=== PATIENT | male | born 1980 | race Caucasian/White ===

== ENCOUNTER 2022-03-12 11:00 | Inpatient (IN) | payer MEDICAID ==
[~2022-03-12] VITALS: Ht 180.3 cm; Wt 108.9 kg
--- NOTE | 2022-03-12 11:15 | NUR ---
Pt brought by self, A&Ox4, pt presents to ER with redness and pain on L upper leg, afebrile, VSS ,respirations are even and unlabored, will cont to monitor
[2022-03-12 11:49] VITALS: BP_SYST 154
--- NOTE | 2022-03-12 12:00 | NUR ---
Dr Gould evaluating patient at bedside
[2022-03-12] MEDS ORDERED: VANCOMYCIN HCL 1,000 MG in NS 250 ML IV ONE (12:45)
--- NOTE | 2022-03-12 13:05 | NUR ---
Dr Gould at bedside to insert central line, procedure well tolerated, will cont to monitor.
[2022-03-12] MEDS ORDERED: LIDOCAINE 1%, 20 ML MDV 20 ML ONE (13:12)
[2022-03-12] MEDS ORDERED: VANCOMYCIN HCL 1000 MG/VIAL IV ONE (13:36)
[2022-03-12] MEDS ORDERED: FUROSEMIDE 40 MG/4 ML VIAL IVP ONE (13:45)
[2022-03-12 13:48] LABS: BASOPHILS # (AUTO) 0.1 K/uL (0.0-0.2); BASOPHILS % (AUTO) 0.7 % (0.0-2.0); EOSINOPHILS # (AUTO) 0.1 K/uL (0.0-0.4); EOSINOPHILS % (AUTO) 1.3 % (0.0-4.0); HEMATOCRIT 28.8 % (36-54); HEMOGLOBIN 9.5 g/dL (14.0-18.0); LYMPHOCYTES # (AUTO) 1.6 K/uL (1.0-5.5); LYMPHOCYTES % (AUTO) 18.5 % (20.5-51.5); MEAN CORPUSCULAR HEMOGLOBIN 24 pg (27-31); MEAN CORPUSCULAR HGB CONC 33 % (32-36); MEAN CORPUSCULAR VOLUME 73 fL (79.0-98.0); MONOCYTES % (AUTO) 11.1 % (1.7-9.3); NEUTROPHILS % (AUTO) 68.4 % (40.0-70.0); PLATELET COUNT (AUTO) 321 K/uL (130-430); RED BLOOD CELL COUNT(AUTO) 3.93 MIL/uL (4.2-6.2); RED CELL DISTRIBUTION WIDTH 15.8 % (9.0-15.0); WHITE BLOOD COUNT (AUTO) 8.8 K/uL (4.8-10.8)
[2022-03-12 14:08] LABS: CHLORIDE 99 mmol/L (98-107); POTASSIUM 3.4 mmol/L (3.5-5.1); SODIUM SERUM 134 mmol/L (136-145)
[2022-03-12 14:10] LABS: ALANINE AMINOTRANSFERASE 11 U/L (12-78); ALBUMIN 1.9 g/dL (3.4-4.8); ASPARTATE AMINOTRANSFERASE 18 U/L (10-37); CALCIUM 8.4 mg/dL (8.4-11.0); CREATININE 0.78 mg/dL (0.55-1.30); GLUCOSE 131 mg/dL (70-99); UREA NITROGEN, BLOOD 11 mg/dL (8-21)
[2022-03-12 14:13] LABS: GFR AFRICAN AMERICAN 142 mL/min (>90)
--- NOTE | 2022-03-12 14:24 | NUR ---
D-DIMER [id number] CALLED IN FROM [facility]. LOO.
[2022-03-12 14:26] LABS: ANION GAP 4 (5-15); TOTAL BILIRUBIN 0.2 mg/dL (0.0-1.0)
[2022-03-12] MEDS ORDERED: MUPIROCIN 2% TOPICAL OINTMENT 22 GM NS PRN (14:30)
[2022-03-12] MEDS ORDERED: MAGNESIUM SULFATE 50 ML IV PRN (14:30)
[2022-03-12] MEDS ORDERED: ZOLPIDEM TARTRATE 5 MG TABLET PO PRN (14:30)
[2022-03-12] MEDS ORDERED: ACETAMINOPHEN 325 MG TABLET PO PRN (14:30)
[2022-03-12] MEDS ORDERED: DOCUSATE SODIUM 100 MG CAPSULE PO PRN (14:30)
[2022-03-12] MEDS ORDERED: MORPHINE 2 MG/ML INJ. SYRINGE IVP PRN (14:30)
[2022-03-12] MEDS ORDERED: LORazepam 2 MG/ML VIAL IVP PRN (14:30)
[2022-03-12] MEDS ORDERED: POTASSIUM CHLORIDE 20 MEQ TAB.PRT.SR PO PRN (14:30)
[2022-03-12 15:09] LABS: TOTAL IRON BIND. CAPACITY 180 ug/dL (250-450)
--- NOTE | 2022-03-12 16:00 | NUR ---
Patient will be admitted to care of Dr Conner Admitted to Tele unit. Will go to room 109. Belongings list completed. Complete and up to date summary report printed. SBAR report to be given at bedside with opportunity for questions.
--- NOTE | 2022-03-12 16:30 | NUR ---
ADMISSION: The patient, PARIS MARY, 41 y/o, M admitted by TAMAR GORDON DO, was given written information regarding hospital policies, unit procedures and contact persons. Obtained VS.
--- NOTE | 2022-03-12 16:35 | NUR ---
CONSULT: CARDIO [facility] DR. ADDISON [phone] S/W: ABBIE
--- NOTE | 2022-03-12 16:38 | NUR ---
CONSULT ALSO CALLED TO DR ADDISON'S OFFICE, RE: CHF. SPOKE TO MARGARITA.
[2022-03-12 16:48] VITALS: BP_SYST 118
--- NOTE | 2022-03-12 17:00 | NUR ---
pain patient complaining of pain to left leg. requesting medication
[2022-03-12] MEDS: ONDANSETRON HCL 4 MG/2 ML VIAL IVP PRN (17:09)
[2022-03-12] MEDS: MORPHINE 2 MG/ML INJ. SYRINGE IVP PRN ×2 (17:10→21:10)
[2022-03-12] MEDS: NACL 0.9% 1,000 ML IV SCH (17:18)
--- NOTE | 2022-03-12 19:20 | NUR ---
closing note Provided SBAR to night RN. Patient in bed, respirations even, non labored, bed in low and locked position, call light within reach, bed alarm on. IVF's running as ordered. Endorsed care to night RN
[2022-03-12 20:17] VITALS: BP_SYST 120
[2022-03-13 01:33] VITALS: BP_SYST 128
[2022-03-13] MEDS: NACL 0.9% 1,000 ML IV SCH (06:22)
[2022-03-13] MEDS: MORPHINE 2 MG/ML INJ. SYRINGE IVP PRN ×4 (06:23→22:44)
[2022-03-13 06:24] VITALS: BP_SYST 128
[2022-03-13 08:01] VITALS: BP_SYST 125
[2022-03-13] MEDS ORDERED: FUROSEMIDE 40 MG/4 ML VIAL IVP SCH (09:00)
[2022-03-13] MEDS ORDERED: ACETAMINOPHEN 325 MG TABLET PO PRN (09:45)
[2022-03-13] MEDS: FERROUS SULFATE 325 MG TABLET.DR PO SCH ×2 (12:24→21:45)
[2022-03-13 12:49] LABS: BARBITURATE, URINE NEGATIVE (NEG <=200); BENZODIAZEPINE, URINE NEGATIVE (NEG <=150); CANNABINOID, URINE NEGATIVE (NEG <=50); COCAINE, URINE NEGATIVE (NEG <=150); METHAMPHETAMINES SCREEN,URINE POSITIVE (NEG <=500); OPIATE, URINE POSITIVE (NEG <=100); PHENCYCLIDINE SCREEN,URINE NEGATIVE (NEG <=25); UR TRICYCLIC ANTIDEPRESSANTS NEGATIVE (NEG <=300); URINE AMPHETAMINE POSITIVE (NEG <=500); URINE METHADONE NEGATIVE (NEG <=200); URINE OXYCODONE SCREEN NEGATIVE (NEG <=100); URINE PROPOXYPHENE SCREEN NEGATIVE (NEG <=300)
[2022-03-13] MEDS: VANCOMYCIN HCL 1,250 MG in NS 250 ML IV SCH ×2 (13:41→21:48)
--- NOTE | 2022-03-13 15:09 | NUR ---
CHIEF OPHTHALMIC TECHNICIAN ACSFrancine Ta responded to a generated Social Service referral to address homelessness and substance abuse. ACSFrancine Ta met with patient at bedside. ACSW completed introductions, reason for referral and provided business card. Housing- Patient confirmed he has been homeless for about a year since being released from long term after a 3 year term. Patient did not want to discuss further. Substance Abuse- Patient did not want to discuss this further. Due to patient currently being on parole, ACSW inquired into his need for proof of admission to which he stated "I don't fuck with parole". ACSW acknowledged his statement and informed him should he need a letter social work can be contacted. Patient stated he no longer wanted to engage with ACSW and declined all resources at this time. ACSW will continue to be available as needed
--- NOTE | 2022-03-13 15:29 | NUR ---
PATIENT'S MOM BRUCE ROJAS SEEN LEAVING FROM PT 'S ROOM. TOLD HER THAT PT REFUSED HOMELESS ASSISTANCE. ASKED HER IF SHE WILL TAKE PT HOME WHEN DC . SHE SAID SHE CAN PICK HIM UP BUT HE WILL NOT LIVE OR GO WITH HER. SHE WILL JUST DROP HIM WHEREVER HE WANTS TO GO.
[2022-03-13 16:40] VITALS: BP_SYST 138
[2022-03-13 19:00] VITALS: BP_SYST 137
[2022-03-13 20:09] VITALS: BP_SYST 137
--- NOTE | 2022-03-13 22:46 | NUR ---
Morphine 1mg given witnessed by Jere BAKER. Patient complaining of lower leg pain 04/28.
[2022-03-14 04:00] VITALS: BP_SYST 133
[2022-03-14] MEDS: VANCOMYCIN HCL 1,250 MG in NS 250 ML IV SCH (05:28)
[2022-03-14] MEDS ORDERED: CLIN-142 PO (08:04)
[2022-03-14] MEDS ORDERED: Ferrous Sulfate PO (08:04)
[2022-03-14] MEDS: ONDANSETRON HCL 4 MG/2 ML VIAL IVP PRN (09:00)
[2022-03-14] MEDS: FERROUS SULFATE 325 MG TABLET.DR PO SCH (09:00)
[2022-03-14] MEDS: MORPHINE 2 MG/ML INJ. SYRINGE IVP PRN (09:03)
[2022-03-14 09:37] VITALS: BP_SYST 93
[2022-03-14 10:08] LABS: CALCIUM 8.8 mg/dL (8.4-11.0); CREATININE 0.69 mg/dL (0.55-1.30); POTASSIUM 3.8 mmol/L (3.5-5.1)
[2022-03-14 10:20] LABS: BASOPHILS # (AUTO) 0.1 K/uL (0.0-0.2); BASOPHILS % (AUTO) 0.9 % (0.0-2.0); EOSINOPHILS # (AUTO) 0.1 K/uL (0.0-0.4); EOSINOPHILS % (AUTO) 0.9 % (0.0-4.0); HEMATOCRIT 33.6 % (36-54); HEMOGLOBIN 11.4 g/dL (14.0-18.0); LYMPHOCYTES # (AUTO) 1.3 K/uL (1.0-5.5); LYMPHOCYTES % (AUTO) 14.9 % (20.5-51.5); MEAN CORPUSCULAR HEMOGLOBIN 26 pg (27-31); MEAN CORPUSCULAR HGB CONC 34 % (32-36); MONOCYTES # (AUTO) 0.6 K/uL (0.0-1.0); MONOCYTES % (AUTO) 6.4 % (1.7-9.3); NEUTROPHILS # (AUTO) 6.6 K/uL (1.8-7.7); NEUTROPHILS % (AUTO) 76.9 % (40.0-70.0); PLATELET COUNT (AUTO) 418 K/uL (130-430); RED CELL DISTRIBUTION WIDTH 15.8 % (9.0-15.0); WHITE BLOOD COUNT (AUTO) 8.6 K/uL (4.8-10.8)
[2022-03-14 10:29] LABS: MEAN CORPUSCULAR VOLUME 76 fL (79.0-98.0)
== END 2022-03-14 11:00 | disposition home or self-care (01) | DRG 383 ==
LOC: SED 11:00 → STU 14:34 → SMU 03-13 12:36
PROVIDERS: ADMIT General Practice; ATTEND General Practice
PROC: 02HV33Z Insertion of Infusion Device into Superior Vena Cava, Percutaneous Approach (ICD-10-PCS; principal; 2022-03-12)
DX: L03.116 Cellulitis of left lower limb (principal); E43 Unspecified severe protein-calorie malnutrition; I42.9 Cardiomyopathy, unspecified; D63.8 Anemia in other chronic diseases classified elsewhere; D50.9 Iron deficiency anemia, unspecified; F11.20 Opioid dependence, uncomplicated; F15.90 Other stimulant use, unspecified, uncomplicated; F17.200 Nicotine dependence, unspecified, uncomplicated; I50.9 Heart failure, unspecified; F19.10 Other psychoactive substance abuse, uncomplicated; Z20.822 Contact with and (suspected) exposure to COVID-19; R79.89 Other specified abnormal findings of blood chemistry; Z88.0 Allergy status to penicillin; Z59.02 Unsheltered homelessness; Z68.33 Body mass index [BMI] 33.0-33.9, adult
CPT/HCPCS: 36415; 71045; 80048; 80053; 80307; 82550; 82607; 82728; 82746; 83540; 83550; 83735; 83880; 84484; 85025; 85379; 87040; 93005; 93306; 93970; 96365; 96366; 96375; 99291; G0378; J1940; J2001; J2270; J2405; J3370; J7050